=== PATIENT | male | born 1955 | race Two or more races ===

== ENCOUNTER 2017-07-26 07:42 | Outpatient (CLI) | payer OTHER | END 2017-07-26 07:50 | disposition home or self-care (01) | LOC: NUCLEAR 07:42 | DX: C44.92 Squamous cell carcinoma of skin, unspecified (principal); R22.1 Localized swelling, mass and lump, neck | CPT/HCPCS: 78815; A9552 ==

== ENCOUNTER → 2018-03-20 | Outpatient (CLI) | payer OTHER | END | disposition home or self-care (01) | LOC: NUCLEAR 08:30 | DX: C10.2 Malignant neoplasm of lateral wall of oropharynx (principal) | CPT/HCPCS: 78815; A9552 ==

== ENCOUNTER → 2019-01-20 | Outpatient (CLI) | payer OTHER | END | disposition home or self-care (01) | LOC: SONOGRAMA 14:03 → MAMO-SONO 15:15 | DX: D44.0 Neoplasm of uncertain behavior of thyroid gland (principal) ==

== ENCOUNTER 2019-04-30 10:14 | Outpatient (CLI) | payer OTHER | END 2019-05-01 06:50 | disposition home or self-care (01) | LOC: NUCLEAR 10:14 | DX: C10.2 Malignant neoplasm of lateral wall of oropharynx (principal) | CPT/HCPCS: 78816; A9552 ==

== ENCOUNTER 2019-05-13 12:03 | Outpatient (CLI) | payer OTHER | END 2019-05-13 12:06 | disposition home or self-care (01) | LOC: TOM 12:03 | DX: C10.8 Malignant neoplasm of overlapping sites of oropharynx (principal); D50.0 Iron deficiency anemia secondary to blood loss (chronic); K60.3 Anal fistula ==

== ENCOUNTER 2020-05-12 08:27 | Outpatient (CLI) | payer OTHER | END 2020-05-12 08:35 | disposition home or self-care (01) | LOC: NUCLEAR 08:27 | DX: C10.9 Malignant neoplasm of oropharynx, unspecified (principal); Z08 Encounter for follow-up examination after completed treatment for malignant neoplasm | CPT/HCPCS: 78816; A9552 ==

== ENCOUNTER 2021-07-26 07:15 | Outpatient (CLI) | payer OTHER | END 2021-07-26 07:16 | disposition home or self-care (01) | LOC: NUCLEAR 07:15 | DX: C10.9 Malignant neoplasm of oropharynx, unspecified (principal); C10.8 Malignant neoplasm of overlapping sites of oropharynx | CPT/HCPCS: 78816; A9552 ==

== ENCOUNTER 2022-05-01 08:21 | Outpatient (CLI) | payer OTHER | END 2022-05-01 08:23 | disposition home or self-care (01) | LOC: NUCLEAR 08:21 | DX: R00.2 Palpitations (principal); I10 Essential (primary) hypertension | CPT/HCPCS: 78452; 93017; A9500 ==

== ENCOUNTER 2023-08-16 08:27 | Outpatient (CLI) | payer OTHER | END 2023-08-16 08:28 | disposition home or self-care (01) | LOC: NUCLEAR 08:27 | DX: C10.9 Malignant neoplasm of oropharynx, unspecified (principal) | CPT/HCPCS: 78815; A9552 ==